=== PATIENT | female | born 1970 | race Caucasian/White ===

== ENCOUNTER 2018-08-16 16:26 | Outpatient (CLI) | payer BC, SELFPAY ==
[2018-08-16 18:24] LABS: Hemoglobin A1C 7.2 % (4.5-6.2)
[2018-08-16 19:07] LABS: TSH (W/Ref FT4) 4.75 uIU/mL (0.358-3.74)
[2018-08-16 19:31] LABS: FREE T4 0.76 ng/dL (0.76-1.46)
== END 2018-08-16 16:46 ==
PROVIDERS: PCP General Practice; Visit Provider General Practice
DX: E11.9 Type 2 diabetes mellitus without complications (principal); E03.9 Hypothyroidism, unspecified
CPT/HCPCS: 36415; 83036; 84439; 84443

== ENCOUNTER 2020-04-02 02:04 | Outpatient (CLI) | payer BC, SELFPAY ==
[2020-04-02 11:10] LABS: Hemoglobin A1C 8.4 % (3.8-5.6)
[2020-04-02 11:21] LABS: COMMENT (LAB VIEW ONLY) 50.74 mg/dL; Microalb ug/mg Crea 6.1 ug/mg Cr
[2020-04-02 12:02] LABS: Albumin 3.9 g/dL (3.4-5.0); Alkaline Phosphatase 49 U/L (46-116); Anion Gap 13.1 mmol/L (3-11); BUN 22 mg/dL (7-18); Bilirubin, Total 0.4 mg/dL (0.2-1.0); CO2 19.9 mmol/L (21.0-32.0); CREATININE 0.82 mg/dL (0.55-1.02); Calcium 8.3 mg/dL (8.5-10.1); Chloride 100 mmol/L (98-107); FREE T4 1.02 ng/dL (0.76-1.46); Glucose 207 mg/dL (74-106); Potassium 4.6 mmol/L (3.5-5.1); Sodium 133 mmol/L (136-145); Total Protein 7.8 g/dL (6.4-8.2)
[2020-04-02 12:13] LABS: ALT 25 U/L (14-59); AST 27 U/L (15-37)
== END 2020-04-02 02:24 ==
PROVIDERS: PCP General Practice; Visit Provider Physician Assistant
DX: E11.9 Type 2 diabetes mellitus without complications (principal); E78.5 Hyperlipidemia, unspecified; I10 Essential (primary) hypertension; E03.9 Hypothyroidism, unspecified
CPT/HCPCS: 36415; 80053; 82043; 82570; 83036; 84439; 84443

== ENCOUNTER 2020-11-06 10:41 | Outpatient (REF) | payer BC, SELFPAY ==
[2020-11-06 14:07] LABS: ALT 22 U/L (14-59); AST 12 U/L (15-37); Anion Gap 8.4 mmol/L (3-11); BUN 16 mg/dL (7-18); CO2 25.6 mmol/L (21.0-32.0); CREATININE 0.7 mg/dL (0.55-1.02); Calcium 9.1 mg/dL (8.5-10.1); Calculated LDL 151 mg/dL (<100); Chloride 102 mmol/L (98-107); Cholesterol 268 mg/dL (<200); Glucose 157 mg/dL (74-106); HDL Cholesterol 38 mg/dL (40-60); Potassium 4.6 mmol/L (3.5-5.1); Sodium 136 mmol/L (136-145); TSH (W/Ref FT4) 3.43 uIU/mL (0.36-3.74); Triglyceride 398 mg/dL (<150)
== END 2020-11-06 10:42 | disposition home or self-care (01) ==
LOC: NCHCN 10:41
PROVIDERS: PCP Nurse Practitioner Family; Visit Provider Nurse Practitioner Family
DX: E11.9 Type 2 diabetes mellitus without complications; E03.9 Hypothyroidism, unspecified; E78.5 Hyperlipidemia, unspecified
CPT/HCPCS: 80048; 80061; 84443; 84450; 84460

== ENCOUNTER 2021-02-05 09:59 | Outpatient (REF) | payer BC, SELFPAY ==
--- NOTE | 2021-02-05 08:30 | PAPFT_PTH ---
PATIENT: Xiao Sigala LOC: [facility] U#:[id number] AGE/SX: 50/F ROOM: RE02/05/[address]: Aletha Hernandez : 1970 BED: DIS: 02/05/2021 SPEC #: [id number] RECD: 02/05/21 13:06 STATUS: JUSTIN ADAN #: [id number] BRIA: 02/05/21 08:[address]: Aletha Hernandez DEPT: [facility] Cytology RECD BY: Maxine Rice Tissues: 1 - CX/ENDOCX FOR PAP SMEARS Procedures: PAP THIN PREP/UVM Screening HPV DNA PROBE Comments: [id number] (CHLAMYDIA/GC)
[2021-02-06 14:59] LABS: Chlamydia Result Negative (Negative); GC Result Negative (Negative)
== END 2021-02-05 10:00 | disposition home or self-care (01) ==
LOC: LBN 09:59
PROVIDERS: PCP Nurse Practitioner Family; Visit Provider Nurse Practitioner Family
DX: Z00.00 Encounter for general adult medical examination without abnormal findings (principal); Z12.4 Encounter for screening for malignant neoplasm of cervix; Z01.419 Encounter for gynecological examination (general) (routine) without abnormal findings; Z11.3 Encounter for screening for infections with a predominantly sexual mode of transmission; Z11.51 Encounter for screening for human papillomavirus (HPV)
CPT/HCPCS: 87491; 87591; 88142; 87624

== ENCOUNTER 2021-04-08 06:04 | Day surgery (SDC) | payer BC, SELFPAY ==
[2021-04-08 06:23] VITALS: BP 139/95; PULSE 90; RESP 20; TEMP 36.7; O2SAT 98
--- NOTE | 2021-04-08 06:25 | COLE_ITS ---
Date of service: 04/08/21 Time of Service: : Colonoscopy Report Date of procedure: 04/08/21 Pre-op diagnosis general: Colon Cancer Screening Post-op diagnosis procedure note: other (polyps and internal hemorrhoid) Procedure: Colonoscopy with polypectomy Surgeon: Sandie Hicks Anesthesia Type: General:No Airway (ASA 3/ Batool Mckinnon CRNA) Estimated blood loss (mL): 3 Pathology: other (Transverse polyp, rectal polyp) Complications: None Disposition: same day Indications: The patient is here for Colonoscopy pre-op. She has no family history of colon cancer. She has not had any bowel habit changes. -Discussed colonoscopy bowel prep as well as the procedure. Discussed possible complications of the procedure to include bleeding, pain, perforation, missed small lesion/polyp, sore throat, aspiration and adverse reaction to the medications. Questions were answered to patient?s satisfaction. No guarantees were implied or given. Prep: Miralax/Dulcolax Procedure Start Time: Procedure End Time: 08:00 Retraction Time: 20 minutes Findings: 3 small sessile polyps Internal hemorrhoi/Skin tag Procedure Description: After informed consent was obtained the patient was taken to the procedure room and placed in a left decubitous position. Monitors were applied and a time out was done. The patients name, date of , procedure, allergies to medications and metal in their body was reviewed. The patient was then sedated. Once sedated and comfortable a rectal exam was done. External exam was normal. Internal exam revealed a normal sphincter tone and no palpable masses. The scope was then introduced and retro-flexed. One hemorrhoidal skin tag was noted on retroflexion. No polyps or masses were identified on retro-flexion. The scope was then advanced to the cecum without difficulty. The ileocecal vlave a nd appendiceal orifice were identified. The prep was good. The scope was then slowly retracted over 20 minutes back into the rectum. Polyps were removed with cold forceps in the transverse colon x1 and rectum x2. There was no diverticulosis noted. The scope was removed and the patient was woken up and taken back to Same day surgery in stable condition. The patient tolerated the procedure well and there were no immediate complications. Follow up: The patient should follow up in 5 years unless they develop changes in bowel habits or other new gastrointestinal complaints.
--- NOTE | 2021-04-08 06:25 | W.PM.DSUDISC ---
Discharge Plan Disposition Patient Disposition: HOME Condition: Good Discharge Details Reason For Visit: Colonoscopy Attending Provider: Sandie Hicks Primary Care Provider: Aletha Hernandez Home Meds and New Rx's Prescriptions: Continued insulin lispro [Humalog KwikPen Insulin] 100 unit/mL insulin pen 10 unit subcut HS RF: 0 metformin 1,000 MG tablet 1,000 mg PO DAILY RF: 0 lisinopril 10 MG tablet 10 mg PO DAILY RF: 0 bisoprolol fumarate 5 mg tablet 5 mg PO DAILY RF: 0 glipizide 10 mg tablet 10 mg PO DAILY RF: 0 Jardiance 10 mg tablet 20 mg PO DAILY RF: 0 hydrochlorothiazide 12.5 mg tablet 12.5 mg PO DAILY RF: 0 atorvastatin 40 mg tablet 40 mg PO HS RF: 0 Discharge Instructions Instructions: Colorectal Polyps (DC), Hemorrhoids (DC) Additional Instructions: Findings: One hemorrhoidal skin tag polyps Follow up: 5 years Please call if you develop: fevers >101.5 Nausea or Vomiting Abdominal pain that is not transient Rectal bleeding that is more then a tbsp A hard abdomen and inability to pass gas DAY SURGERY UNIT POST ENDOSCOPY INSTRUCTIONS Instructions for everyone who is given Anesthesia: For your safety, please do the following for the next 24 Hours: a. Do not drive or operate dangerous equipment b. Do not drink alcohol beverages or use any recreational drugs for the first 24 hours or while taking pain medications. The medications in your body may have a reaction that can be dangerous. c. Do not make any important decisions or sign any important papers 1. Generally there are no restrictions on your activity after a day or so has gone by, but you may feel a bit fatigued for a few days. 2. After you arrive home you may have a light meal and return to a normal diet as you can tolerate it without feeling sick to your stomach. 3. After surgery, you may feel pain or discomfort. This should be only transient, but if it persists please contact your doctor. 4. If there are any questions regarding the findings of your procedure, please feel free to contact your doctor. 6. If you are unable to contact your doctor with a problem, contact the hospital at [phone]. 7. Continue all your regular medications unless directed otherwise. I understand the above instructions and have no questions. Signature of Patient or Responsible Adult Escort Date/Time Name of Responsible Adult Escort Signature of Nurse Date/Time Activity:: Activity as Tolerated Diet:: As Tolerated Discharge Orders Discharge Orders: Discharge Order (Routine); Ordered 04/08/21 Ordered By: Sandie Hicks
[2021-04-08] MEDS: Lactated Ringers 1,000 ML 80 ML IV (06:41)
--- NOTE | 2021-04-08 07:02 | W.ANESPRE ---
General Info Date of Service Date Performed: 04/08/21 Height: 5 ft 3 in Weight: 92.3 kg Body Mass Index (BMI): 36.0 Surgical Procedure: Operation Date: 04/08/21 07:35 Proposed Procedures Side Surgeon p Colonoscopy Sandie Hicks MD Meds Allergies and Home Medications Allergies Allergy/AdvReac Type Severity Reaction Status Date / Time No Known Allergies Allergy Unverified 04/05/21 09:54 Home Medication Medication Instructions Recorded lisinopril 10 mg PO DAILY tab-cap 10/01/15 metformin 1,000 mg PO DAILY 10/01/15 bisoprolol fumarate 5 mg tablet 5 mg PO DAILY 11/30/20 empagliflozin 10 mg tablet 20 mg PO DAILY tab 11/30/20 glipizide 10 mg tablet 10 mg PO DAILY 11/30/20 hydrochlorothiazide 12.5 mg tablet 12.5 mg PO DAILY 11/30/20 insulin lispro 100 unit/mL 10 unit SUBCUT HS 03/21/21 subcutaneous pen atorvastatin 40 mg PO HS 04/05/21 Current Visit Medications: Current Medications Generic Name Dose Route Start Last Admin Trade Name Freq PRN Reason Stop Dose Admin Hyoscyamine Sulfate 0.125 mg 04/08/21 06:26 Hyoscyamine 0.125 Mg Sl/Oral/Chew SL DIRECTED PRN Ringer's Solution 1,000 mls @ 80 mls/hr 04/08/21 06:00 IV 04/08/21 23:59 INFUSION BETHANY IV Miscellaneous Supplies 1 each 04/08/21 06:00 Iv Access IV 04/08/21 23:59 DIRECTED BETHANY Ondansetron HCl 4 mg 04/08/21 06:26 Ondansetron 4 Mg/2 Ml Vial IVP Q4H PRN PRN Nausea / Vomiting Sodium Chloride 0 ml 04/08/21 06:00 Normal Saline Flush 10 Ml Syr IV 04/08/21 23:59 PRN PRN Sodium Chloride 0 ml 04/08/21 06:00 Normal Saline 10 Ml Vial IJ 04/08/21 23:59 DIRECTED PRN Sterile Water 0 ml 04/08/21 06:00 Water,Injection,Sterile 10 Ml Vial IJ 04/08/21 23:59 DIRECTED PRN PFSH Active Problems Active Problems: Problem Status Onset Code Screening for colon cancer Z12.11 Medical History Medical History Hyperlipidemia Hypertension Hypothyroid pt. denies this Type 2 diabetes mellitus Surgical History Surgical History Ligation of fallopian tube Tobacco Smoking/Tobacco Use Status: Never Alcohol Alcohol Intake: never Substance Use Substance use: Never Substance use type: does not use Vital Signs and Lab Results Vital Signs Most Recent Vital Signs in EMR: Most Recent Vital Signs Temp Pulse Resp BP Pulse Ox 36.7 C 90 20 139/95 H 98 04/08/21 06:23 04/08/21 06:23 04/08/21 06:23 04/08/21 06:23 04/08/21 06:23 Point of Care Results Point of Care Results: Finger Stick Blood Glucose 135 04/08/21 06:40 Lab Results Blood Type / Crossmatch: No Data to Display Complete Blood Count: No Data to Display Complete Metabolic Panel: No Data to Display Liver Function Panel: No Data to Display Coagulation Panel: No Data to Display Cardiac Panel: No Data to Display Arterial Blood Gas: No Data to Display Venous Blood Gas: No Data to Display Pancreas Panel: No Data to Display Thyroid Panel: No Data to Display Infectious Disease: No Data to Display Blood Cultures: No Data to Display Toxicology Panel: No Data to Display Panel: No Data to Display Anesthesia Assessment and Plan Anesthesia History Personal History: No History of Anesthesia Complications Family History: No Family History of Anesthesia Complications Exercise Tolerance Exercise Tolerance: Metabolic Equivalents>4 Pertinent Negatives Pertinent Negatives: No Symptoms of GERD, No Major Cardiovascular Symptoms or Complaints, No Major Pulmonary Symptoms or Complaints and No History of CVA/TIA Cardiac & Pulmonary Exam Cardiac Exam: Normal S1/S2 Heart Sounds Pulmonary Exam: Clear Bilateral Breath Sounds Airway Exam Known Difficult Airway: No Mallampati Class: 2 Mouth Opening: Normal (> 3cm) Thyromental Distance: Greater than 3 cm Neck Range of Motion: Full ROM Neck Circumference: Normal Teeth Condition: Normal Dentition ASA Classification ASA Score: ASA 3 Emergency Case?: No NPO Status NPO Status: NPO Clears >2 hours, Solids >8 hours Status Status: Negative HCG Anesthesia Plan Resuscitation Status: Full Code Anesthesia Technique: General Anesthesia Airway Planned: Natural Airway Monitors Used: Standard Monitors
[2021-04-08 07:06] VITALS: BMI 36.0
[2021-04-08 08:08] VITALS: BP 113/66; PULSE 69; RESP 16; TEMP 36.2; O2SAT 96
--- NOTE | 2021-04-08 08:13 | W.ANESPOSTOP ---
Postoperative Evaluation Date, Time and Location Date Performed: 04/08/21 Time Performed: 08:13 Patient Location: Day Surgery Unit Vital Signs Most Recent Imported Vital Signs: Most Recent Vital Signs Temp Pulse Resp BP Pulse Ox 36.2 C L 69 16 113/66 96 04/08/21 08:08 04/08/21 08:08 04/08/21 08:08 04/08/21 08:08 04/08/21 08:08 Pain Score Most Recent Pain Score: Most Recent Pain Score Pain Level 0 04/08/21 08:08 Assessment Mental Status: Awake (Alert & Oriented to Patient Baseline) Airway and Respiratory Function: Patent airway with normal (patient baseline) respiratory exam Cardiovascular Function: Hemodynamically Stable Hydration Status: Adequately Hydrated Nausea & Vomiting: No Nausea or Vomiting Pain: Pt. Denies Any Pain Peripheral Nerve Block: Patient did not receive a nerve block
[2021-04-08 08:37] VITALS: BP 131/77; PULSE 73; RESP 20; TEMP 36.5; O2SAT 99
--- NOTE | 2021-04-08 08:40 | BOWEL_PTH ---
PATIENT: Xiao Sigala LOC: [facility] U#:[id number] AGE/SX: 50/F ROOM: RE04/08/[address]: Sandie Hicks MD : 1970 BED: DIS: 04/08/2021 SPEC #: [id number] RECD: 04/08/21 12:14 STATUS: JUSITN REQ #: [id number] BRIA: 04/08/21 08:[address]: Sandie Hicks DEPT: Surgical Specimen RECD BY: Maxine Rice ENTERED: 04/08/21 12:16 SP TYPE: Bowel OTHR DR: Aletha Hernandez Tissues: 1 - BIOPSY BOWEL 2 - BIOPSY BOWEL Procedures: GROSS AND MICRO LEVEL 4 Comments: [id number]
== END 2021-04-08 09:34 | disposition home or self-care (01) ==
PROVIDERS: PCP Nurse Practitioner Family; Visit Provider Surgery
PROC: 0DJD8ZZ Inspection of Lower Intestinal Tract, Via Natural or Artificial Opening Endoscopic (ICD-10-PCS; CPT 45378; principal; 2021-04-08 07:30)
DX: Z12.11 Encounter for screening for malignant neoplasm of colon (principal); E11.9 Type 2 diabetes mellitus without complications; I10 Essential (primary) hypertension; D12.3 Benign neoplasm of transverse colon; D12.8 Benign neoplasm of rectum; K64.8 Other hemorrhoids
CPT/HCPCS: 45380; 81025; 88305; 99211; J2001

== ENCOUNTER 2021-04-29 01:02 | Outpatient (CLI) | payer BC, SELFPAY ==
--- NOTE | 2021-04-29 | DI.MAMMO_ITS ---
Exam(s) MAMMO SCREENING EXAM: MAMMO SCREENING CLINICAL HISTORY: SCREENING,Z12.31. TECHNIQUE: Bilateral full field digital CC and MLO mammographic images were obtained with 3D tomosyn thesis and utilizing computer aided detection (CAD). COMPARISON: None. This is a baseline mammogram on this 50-year-old patient. FINDINGS: There are no CAD designations. There are no significant radiograph findings in the right breast. Anteriorly in the left breast there is an asymmetric density measuring 5 x 4 millimeters, located 3 c m in from the nipple, slightly lateral of center. Somewhat equivocal on 3D imaging. There are no malignant-appearing microcalcification groups in this region or elsewhere in either [address] There is no significant architectural distortion nor skin thickening-retraction. IMPRESSION: 1. No radiographic evidence of malignancy in the right breast. 2. Possible 5 x 4 millimeter nodule anteriorly in the left breast as described above. Spot compressi on view and ultrasound recommended BI-RADS Category 0 - Assessment Incomplete: Need additional imaging evaluation Breast Density - Category B - Scattered areas of fibroglandular density Breast density Category C or D implies that the patient has dense breast tissue. Dense breast tissue can make it harder to find cancer on a mammogram. Dense breast tissue is also associated with an incr eased risk of breast cancer. This information about the result of the mammogram report was provided to the patient to raise their awareness. Use this report when you speak with the patient about their risks for breast cancer, which includes their family history. At that time, you may recommend additional screening tests (Ultrasoun d or MRI) as these tests may add significant information. A negative radiographic report should not delay biopsy if a dominant or clinically suspicious mass is present. Up to ten percent of cancers are not identified on mammography. A negative report may reinforce clinical impression. Adenosis and dense breasts may obscure an underlying neoplasm. False positive reports average 6 to 10%. Patient will receive a letter notifying them of these results.
== END 2021-04-29 01:22 ==
PROVIDERS: PCP Nurse Practitioner Family; Visit Provider Nurse Practitioner Family
DX: Z12.31 Encounter for screening mammogram for malignant neoplasm of breast (principal); R92.8 Other abnormal and inconclusive findings on diagnostic imaging of breast
CPT/HCPCS: 77063; 77067

== ENCOUNTER 2021-05-09 03:06 | Outpatient (CLI) | payer BC, SELFPAY ==
--- NOTE | 2021-05-09 | DI.MAMMO_ITS ---
Exam(s) MG MAMMO SCREEN CALL BACK UNI US BREAST LT LIMITED EXAM: MG MAMMO SCREEN CALL BACK UNI and U/S breast LT limited CLINICAL HISTORY: F/U MAMMO, LT BREAST ASYMMETRIC DENSITY, ? NODULE. TECHNIQUE: Craniocaudal and mediolateral oblique Full Field Digital Mammography views of the left br east with Computer Aided Diagnosis followed by Tomosynthesis and left breast ultrasound. COMPARISON: Comparison with prior examinations. FINDINGS: Mammography/Tomosynthesis: Masses/Architectural Distortion: None seen. The area of concern does not persist on additional views. Microcalcifictions: No suspicious pleomorphic-type are seen. Skin Thickening/Nipple Retraction: None. Left breast US: Echotexture: Normal appearance of the glandular tissue. Shadowing: No suspicious foci. Cyst: None. Solid lesions: None seen. Ductal dilation: None. IMPRESSION: 1. No evidence of malignancy is noted. 2. Unless there is more urgent need, follow-up screening mammography is recommended, as per [employer] guidelines. 3. The findings were discussed with the patient on the date of the examination. BI-RADS Category 1 - Negative Breast Density - Category B - Scattered areas of fibroglandular density Breast density Category C or D implies that the patient has dense breast tissue. Dense breast tissue can make it harder to find cancer on a mammogram. Dense breast tissue is also associated with an incr eased risk of breast cancer. This information about the result of the mammogram report was provided to the patient to raise their awareness. Use this report when you speak with the patient about their risks for breast cancer, which includes their family history. At that time, you may recommend additional screening tests (Ultrasoun d or MRI) as these tests may add significant information. A negative radiographic report should not delay biopsy if a dominant or clinically suspicious mass is present. Up to ten percent of cancers are not identified on mammography. A negative report may reinforce clinical impression. Adenosis and dense breasts may obscure an underlying neoplasm. False positive reports average 6 to 10%. Patient will receive a letter notifying them of these results.
== END 2021-05-09 03:26 ==
PROVIDERS: PCP Nurse Practitioner Family; Visit Provider Nurse Practitioner Family
DX: Z12.31 Encounter for screening mammogram for malignant neoplasm of breast (principal); R92.8 Other abnormal and inconclusive findings on diagnostic imaging of breast; N64.89 Other specified disorders of breast
CPT/HCPCS: 76642; 77063; 77067

== ENCOUNTER 2022-04-04 16:13 | Outpatient (REF) | payer BC, SELFPAY ==
[2022-04-04 15:21] LABS: HCT 38.5 % (36.0-46.0); HGB 12.3 g/dL (11.2-15.7); MCH 29.6 pg (27.0-33.0); MCHC 31.9 % (32.0-36.0); MCV 93 fL (80-95); MPV 10.4 fL (8.0-11.0); Platelet Count 371 10^3/uL (130-400); RBC 4.15 10^6/uL (3.93-5.22); RDW 13.4 % (11.7-14.6); RDW-SD 45.3 fL; WBC 7.19 10^3/uL (4.4-10.8)
[2022-04-04 15:38] LABS: ALT 26 U/L (14-59); AST 16 U/L (15-37); Albumin 4.1 g/dL (3.4-5.0); Alkaline Phosphatase 40 U/L (46-116); Anion Gap 11.3 mmol/L (3-11); BUN 21 mg/dL (7-18); Bilirubin, Total 0.3 mg/dL (0.2-1.0); CO2 25.7 mmol/L (21.0-32.0); CREATININE 0.7 mg/dL (0.55-1.02); Calcium 8.8 mg/dL (8.5-10.1); Calculated LDL 83 mg/dL (<100); Chloride 100 mmol/L (98-107); Cholesterol 172 mg/dL (<200); Glucose 71 mg/dL (74-106); HDL Cholesterol 45 mg/dL (40-60); Potassium 4.3 mmol/L (3.5-5.1); Sodium 137 mmol/L (136-145); TSH (W/Ref FT4) 3.29 uIU/mL (0.36-3.74); Total Protein 7.7 g/dL (6.4-8.2); Triglyceride 220 mg/dL (<150)
== END 2022-04-04 16:14 | disposition home or self-care (01) ==
LOC: LBN 16:13
PROVIDERS: PCP Nurse Practitioner Family; Visit Provider Nurse Practitioner Family
DX: Z00.00 Encounter for general adult medical examination without abnormal findings (principal); E03.9 Hypothyroidism, unspecified; E78.5 Hyperlipidemia, unspecified
CPT/HCPCS: 80053; 80061; 85027; 84443

== ENCOUNTER 2022-12-29 01:52 | Outpatient (CLI) | payer BC, SELFPAY ==
--- NOTE | 2022-12-29 | DI.MAMMO_ITS ---
Exam(s) MAMMO SCREENING EXAM: MAMMO SCREENING CLINICAL HISTORY: SCREENING, Z12.31. TECHNIQUE: Bilateral full field digital CC and MLO mammographic images were obtained with 3D tomosyn thesis and utilizing computer aided detection (CAD). COMPARISON: Prior mammograms were reviewed. FINDINGS: There has been no significant change in the appearance and distribution of the fibroglandular tissue. There are no CAD designations. No new significant findings in the right breast. Nodular density in the left breast measuring approximately 5 x 3 cm and located approximately 3 cm fr om the nipple slightly lateral of center is noted and appears to have slightly increased in size when compared to April 2021. Requires further imaging. There is no significant architectural distortion nor skin thickening-retraction. IMPRESSION: No radiographic evidence of malignancy in the right breast. Left breast nodular density located 3 cm in from the nipple appears slightly larger than previous. S pot compression view and ultrasound recommended. BI-RADS Category 0 - Assessment Incomplete: Need additional imaging evaluation Breast Density - Category B - Scattered areas of fibroglandular density Breast density Category C or D implies that the patient has dense breast tissue. Dense breast tissue can make it harder to find cancer on a mammogram. Dense breast tissue is also associated with an incr eased risk of breast cancer. This information about the result of the mammogram report was provided to the patient to raise their awareness. Use this report when you speak with the patient about their risks for breast cancer, which includes their family history. At that time, you may recommend additional screening tests (Ultrasoun d or MRI) as these tests may add significant information. A negative radiographic report should not delay biopsy if a dominant or clinically suspicious mass is present. Up to ten percent of cancers are not identified on mammography. A negative report may reinforce clinical impression. Adenosis and dense breasts may obscure an underlying neoplasm. False positive reports average 6 to 10%. Patient will receive a letter notifying them of these results.
== END 2022-12-29 02:12 ==
LOC: DI 01:53
PROVIDERS: PCP Nurse Practitioner Family; Visit Provider Nurse Practitioner Family
DX: Z12.31 Encounter for screening mammogram for malignant neoplasm of breast (principal); R92.8 Other abnormal and inconclusive findings on diagnostic imaging of breast
CPT/HCPCS: 77063; 77067

== ENCOUNTER 2023-01-01 02:20 | Outpatient (CLI) | payer BC, SELFPAY ==
--- NOTE | 2023-01-01 | DI.US_ITS ---
Exam(s) MG MAMMO SCREEN CALL BACK UNI US BREAST LT COMPLETE EXAM: MAMMO SCREEN CALL BACK UNI CLINICAL HISTORY: F/U MAMMO, LT BREAST NODULAR DENSITY. TECHNIQUE: Unilateral spot mammographic images obtained with 3D tomosynthesisand utilizing computer aided detection (CAD). . Complete left breast Ultrasound was also performed, including all 4 quadrants, the retroareolar regio n, and the ipsilateral axilla. COMPARISON: Prior mammograms were reviewed. This additional imaging was performed due to findings described on the recent screening mammogram of . FINDINGS: DIAGNOSTIC MAMMOGRAM: Additional mammographic views performed todaydoes not dissipate the nodule. Therefore proceeded with ultrasound. COMPLETE LEFT BREAST ULTRASOUND: Ultrasound performed today reveals a 4 millimeter benign microcyst at the 2 o'clock position, this co rresponding to the finding on the mammogram.. No solid findings on ultrasound in all 4 quadrants. Scanning of the ipsilateral axilla reveals no significant adenopathy. IMPRESSION: 1. There is a benign 4 mm microcyst at 2 o'clock position left breast seen on ultrasound and corresp onding to the finding on the mammogram. Appropriate follow-up as discussed by myself with the patient today, is to keep this patient on her y early mammogram schedule, with earlier imaging if a self detected breast changes noted.. The patient was informed of these findings and recommendations prior to leaving the department today. BI-RADS Category 2 - Benign Findings Breast Density - Category B - Scattered areas of fibroglandular density Breast density Category C or D implies that the patient has dense breast tissue. Dense breast tissue can make it harder to find cancer on a mammogram. Dense breast tissue is also associated with an incr eased risk of breast cancer. This information about the result of the mammogram report was provided to the patient to raise their awareness. Use this report when you speak with the patient about their risks for breast cancer, which includes their family history. At that time, you may recommend additional screening tests (Ultrasoun d or MRI) as these tests may add significant information. A negative radiographic report should not delay biopsy if a dominant or clinically suspicious mass is present. Up to ten percent of cancers are not identified on mammography. A negative report may reinforce clinical impression. Adenosis and dense breasts may obscure an underlying neoplasm. False positive reports average 6 to 10%. Patient will receive a letter notifying them of these results.
== END 2023-01-01 02:40 ==
LOC: DI 02:21
PROVIDERS: PCP Nurse Practitioner Family; Visit Provider Nurse Practitioner Family
DX: Z12.31 Encounter for screening mammogram for malignant neoplasm of breast (principal); R92.8 Other abnormal and inconclusive findings on diagnostic imaging of breast; N60.02 Solitary cyst of left breast
CPT/HCPCS: 76642; 77063; 77067

== ENCOUNTER 2023-06-24 16:04 | Outpatient (REF) | payer BC, SELFPAY ==
[2023-06-24 17:46] LABS: HCT 38.4 % (36.0-46.0); HGB 12.1 g/dL (11.2-15.7); MCH 27.4 pg (27.0-33.0); MCHC 31.5 % (32.0-36.0); MCV 87 fL (80-95); MPV 10.7 fL (8.0-11.0); Platelet Count 385 10^3/uL (130-400); RBC 4.41 10^6/uL (3.93-5.22); RDW 14.7 % (11.7-14.6); RDW-SD 47.4 fL; WBC 5.49 10^3/uL (4.4-10.8)
[2023-06-24 18:11] LABS: ALT 22 U/L (14-59); AST 15 U/L (15-37); Albumin 4.1 g/dL (3.4-5.0); Alkaline Phosphatase 42 U/L (46-116); Anion Gap 9.9 mmol/L (3-11); BUN 16 mg/dL (7-18); Bilirubin, Total 0.3 mg/dL (0.2-1.0); CO2 25.1 mmol/L (21.0-32.0); CREATININE 0.9 mg/dL (0.55-1.02); Calcium 9.4 mg/dL (8.5-10.1); Calculated LDL 60 mg/dL (<100); Chloride 100 mmol/L (98-107); Cholesterol 130 mg/dL (<200); Estimated GFR 76.92 (mL/min/1.73m2); Glucose 118 mg/dL (74-106); HDL Cholesterol 46 mg/dL (40-60); Potassium 4.7 mmol/L (3.5-5.1); Sodium 135 mmol/L (136-145); TSH (W/Ref FT4) 6.36 uIU/mL (0.36-3.74); Total Protein 7.9 g/dL (6.4-8.2); Triglyceride 120 mg/dL (<150)
[2023-06-24 18:44] LABS: FREE T4 0.78 ng/dL (0.76-1.46)
== END 2023-06-24 16:05 | disposition home or self-care (01) ==
LOC: NCHCN 16:04
PROVIDERS: PCP Nurse Practitioner Family; Visit Provider Nurse Practitioner Family
DX: Z00.00 Encounter for general adult medical examination without abnormal findings (principal); E11.9 Type 2 diabetes mellitus without complications; E03.9 Hypothyroidism, unspecified; E78.5 Hyperlipidemia, unspecified
CPT/HCPCS: 80053; 80061; 85027; 84439; 84443

== ENCOUNTER 2024-02-23 16:31 | Outpatient (REF) | payer BC, SELFPAY ==
[2024-02-23 17:18] LABS: ALT 26 U/L (14-59); AST 16 U/L (15-37); Albumin 4.2 g/dL (3.4-5.0); Alkaline Phosphatase 42 U/L (46-116); BUN 20 mg/dL (7-18); Bilirubin, Total 0.3 mg/dL (0.2-1.0); CREATININE 0.9 mg/dL (0.55-1.02); Calcium 9.1 mg/dL (8.5-10.1); Chloride 104 mmol/L (98-107); Estimated GFR 76.44 (mL/min/1.73m2); Glucose 107 mg/dL (74-106); Potassium 4.7 mmol/L (3.5-5.1); Sodium 140 mmol/L (136-145); Total Protein 7.8 g/dL (6.4-8.2)
[2024-02-23 18:16] LABS: COMMENT (LAB VIEW ONLY) 56.44 mg/dL; Microalb ug/mg Crea 7.8 ug/mg Cr
== END 2024-02-23 16:32 | disposition home or self-care (01) ==
LOC: NCHCN 16:31
PROVIDERS: PCP Nurse Practitioner Family; Visit Provider Nurse Practitioner Family
DX: E11.9 Type 2 diabetes mellitus without complications (principal); I10 Essential (primary) hypertension
CPT/HCPCS: 80053; 82043; 82570

== ENCOUNTER 2024-05-09 02:25 | Outpatient (CLI) | payer BC, SELFPAY ==
--- NOTE | 2024-05-09 | DI.MAMMO_ITS ---
Exam(s) MAMMO SCREENING EXAM: MAMMO SCREENING CLINICAL HISTORY: SCREENING, Z12.39 TECHNIQUE: Bilateral full field digital CC and MLO mammographic images were obtained with 3D tomosyn thesis and utilizing computer aided detection (CAD). COMPARISON: Available for comparison. FINDINGS: Masses/Architectural Distortion: There is a new 5 mm well-circumscribed nodule in the outer left [address] st centrally. No areas of architectural distortion are seen. Microcalcifications: No suspicious pleomorphic-type are seen. Skin Thickening/Nipple Retraction: None. IMPRESSION: 1. New 5 mm left breast nodule. 2. Spot compression view and a left breast ultrasound are requested for further evaluation. BI-RADS Category 0 - Incomplete: Need additional imaging evaluation Breast Density - Category B - Scattered areas of fibroglandular density Breast density category C or D implies that the patient has dense breast tissue. Dense breast tissue is very common and is not abnormal but dense breast tissue can make it harder to find cancer on a ma mmogram. Also, dense breast tissue may increase their breast cancer risk. This information about the result of the mammogram report was provided to the patient to raise their awareness. Use this report when you speak with the patient about their risks for breast cancer, which includes their family hist ory. At that time, you may recommend for more screening tests (Ultrasound or MRI) as they might be us eful based on their risk. A negative radiographic report should not delay biopsy if a dominant or clinically suspicious mass is present. Up to ten percent of cancers are not identified on mammography. A negative report may reinforce clinical impression. Adenosis and dense breasts may obscure an underlying neoplasm. False positive reports average 6 to 10%. Patient will receive a letter notifying them of these results.
== END 2024-05-09 02:45 ==
LOC: DI 02:25
PROVIDERS: PCP Nurse Practitioner Family; Visit Provider Nurse Practitioner Family
DX: Z12.39 Encounter for other screening for malignant neoplasm of breast (principal); R92.8 Other abnormal and inconclusive findings on diagnostic imaging of breast; N63.25 Unspecified lump in the left breast, overlapping quadrants
CPT/HCPCS: 77063; 77067

== ENCOUNTER 2024-05-16 02:24 | Outpatient (CLI) | payer BC, SELFPAY ==
--- NOTE | 2024-05-16 | DI.MAMMO_ITS ---
Exam(s) MG MAMMO SCREEN CALL BACK UNI US BREAST LT LIMITED EXAM: MG MAMMO SCREEN CALL BACK UNI CLINICAL HISTORY: New 5 mm well-circumscribed breast nodule in outer lt breast centrally. TECHNIQUE: Craniocaudal and mediolateral oblique spot compression digital Mammography views of the l eftbreast with Tomosynthesis and left breast ultrasound. COMPARISON: MG MG MAMMO SCREENING from 04/29/2021 MG MG MAMMO SCREENING from 12/29/2022 MG MG MAMMO SCREEN CALL BACK UNI from 01/01/2023 US US BREAST LT COMPLETE from 01/01/2023 MG MG MAMMO SCREENING from 05/09/2024 US US BREAST LT LIMITED from 05/16/2024 FINDINGS: Mammography/Tomosynthesis: Masses: None seen. Persistent circumscribed nodule in the lateral central left breast. Architectural Distortion: None seen. Microcalcifictions: No suspicious pleomorphic-type are seen. Skin Thickening/Nipple Retraction: None. Left breast US: Echotexture: Normal appearance of the glandular tissue. Shadowing: No suspicious foci. Cyst: 5 x 4 x 4 millimeter cyst 2 o'clock position 2 cm from the nipple this is consistent with the m ammographic finding. Solid lesions: None seen. Ductal dilation: None. IMPRESSION: 1. No evidence of malignancy is noted. 2. Unless there is more urgent need, follow-up screening mammography is recommended, as per [employer] guidelines. 3. The findings were discussed with the patient on the date of the examination. BI-RADS Category 2 - Benign Findings Breast Density - Category B - Scattered areas of fibroglandular density A mammogram that demonstrates density of C or D indicates the patient's breast tissue is dense. Dense breast tissue is very common and is not abnormal, but dense breast tissue can make it harder to find cancer on a mammogram. Also, dense breast tissue may increase their breast cancer risk. This informa tion about the result of the mammogram report was provided to the patient to raise their awareness. U se this report when you speak with the patient about their risks for breast cancer, which includes th eir family history. At that time, you may recommend for more screening tests (Ultrasound or MRI) as t hey might be useful based on their risk. A negative radiographic report should not delay biopsy if a dominant or clinically suspicious mass is present. Up to ten percent of cancers are not identified on mammography. A negative report may reinforce clinical impression. Adenosis and dense breasts may obscure an underlying neoplasm. False positive reports average 6 to 10%. Patient will receive a letter notifying them of these results.
== END 2024-05-16 02:44 ==
LOC: DI 02:24
PROVIDERS: PCP Nurse Practitioner Family; Visit Provider Nurse Practitioner Family
DX: Z12.31 Encounter for screening mammogram for malignant neoplasm of breast (principal); R92.8 Other abnormal and inconclusive findings on diagnostic imaging of breast
CPT/HCPCS: 76642; 77063; 77067

== ENCOUNTER 2024-05-24 17:41 | Outpatient (REF) | payer BC, SELFPAY ==
[2024-05-24 21:15] LABS: HCT 38.6 % (36.0-46.0); HGB 11.8 g/dL (11.2-15.7); MCH 26.6 pg (27.0-33.0); MCHC 30.6 % (32.0-36.0); MCV 87 fL (80-95); MPV 10.5 fL (8.0-11.0); Platelet Count 359 10^3/uL (130-400); RBC 4.44 10^6/uL (3.93-5.22); RDW 17.1 % (11.7-14.6); RDW-SD 54.1 fL; WBC 6.27 10^3/uL (4.4-10.8)
[2024-05-24 21:35] LABS: TSH (W/Ref FT4) 6.77 uIU/mL (0.36-3.74)
[2024-05-24 21:54] LABS: FREE T4 0.85 ng/dL (0.76-1.46)
== END 2024-05-24 17:42 | disposition home or self-care (01) ==
LOC: NCHCN 17:41
PROVIDERS: PCP Nurse Practitioner Family; Visit Provider Nurse Practitioner Family
DX: N95.1 Menopausal and female climacteric states (principal)
CPT/HCPCS: 85027; 84439; 84443

== ENCOUNTER 2024-08-15 06:08 | Day surgery (SDC) | payer BC, SELFPAY ==
--- NOTE | 2024-08-14 15:41 | W.PREOPHP ---
Assessment and Plan Assessment and plan (1) Encounter for screening colonoscopy: Status: Acute Assessment and plan: I reviwed the plan for a screening colonsocopy today and the risks and the benefits of the procedure. I think Xiao has a good understanding of this and she is able to provide informed consent and we can proceed as planned. History of Present Illness History of Present Illness Chief Complaint: screening colonoscopy Narrative: 53 y/o female with history of HLD, hypothyroid, Type 2 DM and HTN presents for colonoscopy screening pre-op. Her last screening was in 2020 and was remarkable for tubular adenoma and sessile serrated adenoma. She denies a family history of colon cancer. She denies any changes in bowel habits including bloody or black tarry stools, abdominal pain, diarrhea or constipation. She denies constitutional symptoms. Denies use of marijuana or any other recreational or illegal drugs. She denies chest pain, palpitations, dyspnea or dyspnea with exertion. She denies prior history or family history of adverse reactions or complications with anesthesia. The patient denies any history of stroke, CO, seizures, bleeding or clotting disorders. She denies having any implanted metal in her body. Since her last office encounter, she was started on levothyroxine, and most recent thyroid study test been reassuring. Otherwise, there have been no major interval changes with regards to the history or physical. PFSH All Active Problems Encounter for screening colonoscopy (Acute) Serrated adenoma of colon (Acute ~03/2021) Tubular adenoma (Acute ~03/2021) Screening for colon cancer (Acute) Medical History Hypertension Hypothyroid pt. denies this Hyperlipidemia Type 2 diabetes mellitus Surgical History History of colonoscopy (~03/2021) Ligation of fallopian tube Family History Mother Essential hypertension Father Essential hypertension Social History Smoking/Tobacco Use Status: Never Smoking risk assessment performed?: Yes Alcohol Intake: never Drug use: Never Substance use type: does not use Housing: house Do you feel safe at home: Yes Do you feel safe in your relationship?: Yes Meds Allergies and Home Medications Allergies Allergy/AdvReac Type Severity Reaction Status Date / Time No Known Allergies Allergy Verified 08/15/24 06:28 Home Medications ?Medication ?Instructions ?Recorded ?Confirmed ?Type lisinopril 10 mg tablet 10 mg PO DAILY 10/01/15 08/15/24 History bisoprolol fumarate 5 mg tablet 5 mg PO DAILY 11/30/20 08/15/24 History empagliflozin 10 mg tablet 20 mg PO DAILY 11/30/20 08/15/24 History (Jardiance) hydrochlorothiazide 12.5 mg tablet 12.5 mg PO DAILY 11/30/20 08/15/24 History atorvastatin 40 mg tablet 40 mg PO HS 04/05/21 08/15/24 History atenolol 50 mg tablet 50 mg PO DAILY 04/26/24 08/15/24 History dulaglutide 1.5 mg/0.5 mL 1.5 mg subcut QWEEK 04/26/24 08/11/24 History subcutaneous pen injector (Trulicity) glipizide 10 mg tablet 5 mg PO BID 04/26/24 08/15/24 History insulin lispro 100 unit/mL 25 unit subcut HS 04/26/24 08/15/24 History subcutaneous pen (Humalog KwikPen (U-100) Insulin) metformin 1,000 mg tablet 500 mg PO BID 04/26/24 08/15/24 History levothyroxine 75 mcg capsule 75 mcg PO DAILY 06/13/24 08/15/24 History Exam Const General: cooperative, healthy appearing and not in acute distress Neck Neck: normal visual inspection, no lymphadenopathy and supple Resp Effort & Inspection: normal respiratory effort Auscultation: clear to auscultation bilaterally Cardio Jugular venous pressure: no JVD Rate: regular rate Rhythm: regular rhythm Heart Sounds: S1 normal and S2 normal Neuro General: patient alert, patient awake and patient oriented x3 Psych Appearance: grossly normal
--- NOTE | 2024-08-14 15:44 | COLE_ITS ---
Date of service: 08/15/24 Time of Service: 08:09 Colonoscopy Report Date of procedure: 08/15/24 Pre-op diagnosis general: screening colonoscopy Post-op diagnosis procedure note: other (Negative screening colonoscopy) Procedure: colonoscopy Surgeon: Gerhard Leblanc Anesthesia Type: General:No Airway Estimated blood loss (mL): 0 Pathology: none sent Complications: None Disposition: same day Indications: Xiao is a 53 year old woman who needs a screening colonscopy Prep: Miralax/Dulcolax Procedure Start Time: 07:37 Procedure End Time: 07:58 Retraction Time: 12 Findings: Negative screening colonoscopy Procedure Description: After the induction of anesthesia, and with the patient in left lateral decubitus position, I began by performing an external anorectal exam.? Perineum and skin were normal, as was the anal verge.? There are some external hemorrhoids..? Next, I performed a digital rectal exam.?? Next, I advanced a colonoscope into the rectal vault.? I performed retroflexion.? There is a benign fibroepithelial polyp at the top portion of the anal column.? Using insufflation, I then advanced the colonoscope beyond the rectal folds and into the sigmoid colon before advancing towards the cecum.? The quality of the prep was excellent.? The scope was noted to be in the cecum by identification of the ileocecal valve and appendiceal orifice.? I then began withdrawing the colonoscope using repeated irrigation as necessary for full evaluation of the colonic mucosa. ?Once the scope was withdrawn to the level of the rectum, great care was taken to examine portions of the rectal folds.? I did not see any signs of any concerning adenomatous type polyps finally, the scope was withdrawn and the patient was brought to the same-day surgery recovery unit as the anesthetic wore off. ?The findings and instructions were shared with the patient prior to discharge. [place] Bowel Prep [place] Bowel Prep Right Colon: 3 Left Colon: 3 Transverse Colon: 3 Total Score: 9
--- NOTE | 2024-08-14 15:45 | W.PM.DSUDISC ---
Date of service: 08/15/24 Time of Service: 08:11 Discharge Plan Disposition Patient Disposition: Home Condition: Good Discharge Details Reason For Visit: screening colonoscopy Attending Provider: Gerhard Leblanc Primary Care Provider: Aletha Hernandez Home Meds and New Rx's Prescriptions: Continued levothyroxine 75 mcg capsule 75 mcg PO DAILY lisinopril 10 MG tablet 10 mg PO DAILY bisoprolol fumarate 5 mg tablet 5 mg PO DAILY Jardiance 10 mg tablet 20 mg PO DAILY hydrochlorothiazide 12.5 mg tablet 12.5 mg PO DAILY metformin 1,000 mg tablet 500 mg PO BID glipizide 10 mg tablet 5 mg PO BID atenolol 50 mg tablet 50 mg PO DAILY insulin lispro [Humalog KwikPen Insulin] 100 unit/mL insulin pen 25 unit subcut HS Patient Comments: 15 units Trulicity 1.5 mg/0.5 mL pen injector 1.5 mg subcut QWEEK atorvastatin 40 mg tablet 40 mg PO HS Patient Comments: TAKE 1 TABLET BY MOUTH DAILY AT BEDTIME Discontinued bisacodyl [Dulcolax (bisacodyl)] 5 mg tablet,delayed release (DR/EC) 5 mg PO ONCE Qty: 4 0RF Rx Instructions: Take per colonoscopy instructions provided by ordering providers office polyethylene glycol 3350 17 gram/dose powder 17 g PO ONCE Qty: 238 0RF Rx Instructions: Take per colonoscopy instructions provided by ordering providers office Discharge Instructions Additional Instructions: Xiao, was very nice meeting you today, and I hope you are comfortable throughout the procedure. Your prep was excellent and I could see everything fine. You have some external hemorrhoids, to mild internal hemorrhoid disease. There is also a small fibroepithelial polyp at the bottom portion of your rectum. This is totally benign, and because of pain associated with the removal of these, I left this in place. With regards to the remainder of the colonoscopy, everything looks normal. I did not see any signs of any worrisome polyps anywhere along the length of your colon. Because of the type of polyp that had removed on your previous colonoscopy, I recommend another 5-year interval for your next screening. If that 1 is also negative, you could give stronger consideration to spacing them out. 1. If tolerated, consume a soft, low fiber diet for 1-2 days. 2[address] Do not drive, drink alcohol, operate machinery, make critical decisions, or do activities that require coordination or balance for 24 hours. 3. Because air was put into your colon during the procedure, expelling air from your rectum (passing gas or farting) is normal. 4. You may not have a bowel movement for 1-3 days because of the colonoscopy prep. This is normal. 5. Go directly to the emergency room if you notice any of the following: Develop chills (warm to touch), or if you have a thermometer and your temperature is above 101 Difficulty breathing or difficultly swallowing Persistent vomiting Severe abdominal pain, other than gas cramps Severe chest pain Black, tarry stools Any bleeding ? exceeding one tablespoon 6. Call your physician if the site where your intravenous was started becomes red, swollen, painful, and warm to touch. 7. Your physician has reviewed your pre-procedure medications. Please continue to take those medications as previously ordered. You will be given specific information/education regarding any changes to your medications before leaving. Stand Alone Forms: Anesthesia Discharge Inst., [place] ([facility]) Activity:: Activity as Tolerated Diet:: As Tolerated Discharge Orders Discharge Orders: Discharge Order (Routine); Ordered 08/14/24 Ordered By: Gerhard Leblanc DS: Diagnosis Discharge Diagnosis (1) Encounter for screening colonoscopy: Status: Acute Asessment and Plan: Negative screening colonoscopy; based on adenomatous polyps removed during the previous colonoscopy, recommend another 5-year interval
[2024-08-15 06:26] VITALS: BP 131/78; PULSE 89; RESP 16; TEMP 36.4; O2SAT 99
--- NOTE | 2024-08-15 06:57 | W.ANESPRE ---
General Info Date of Service Date Performed: 08/15/24 Height: 5 ft 4 in Weight: 92.8 kg Body Mass Index (BMI): 35.1 Surgical Procedure: Operation Date: 08/15/24 07:35 Proposed Procedure Side Surgeon p Colonoscopy Gerhard Leblanc MD Actual Procedure Side Surgeon p Colonoscopy Not Applicable Gerhard Leblanc MD Pre-Op Diagnosis Post-Op Diagnosis colonoscopy with hx of tubular adenoma and sessile serrated adenoma Meds Allergies and Home Medications Allergies Allergy/AdvReac Type Severity Reaction Status Date / Time No Known Allergies Allergy Verified 08/15/24 06:28 Home Medication ?Medication ?Instructions ?Recorded lisinopril 10 mg tablet 10 mg PO DAILY 10/01/15 bisoprolol fumarate 5 mg tablet 5 mg PO DAILY 11/30/20 empagliflozin 10 mg tablet 20 mg PO DAILY 11/30/20 (Jardiance) hydrochlorothiazide 12.5 mg tablet 12.5 mg PO DAILY 11/30/20 atorvastatin 40 mg tablet 40 mg PO HS 04/05/21 atenolol 50 mg tablet 50 mg PO DAILY 04/26/24 dulaglutide 1.5 mg/0.5 mL 1.5 mg subcut QWEEK 04/26/24 subcutaneous pen injector (Trulicity) glipizide 10 mg tablet 5 mg PO BID 04/26/24 insulin lispro 100 unit/mL 25 unit subcut HS 04/26/24 subcutaneous pen (Humalog KwikPen (U-100) Insulin) metformin 1,000 mg tablet 500 mg PO BID 04/26/24 levothyroxine 75 mcg capsule 75 mcg PO DAILY 06/13/24 Current Visit Medications: Current Medications Generic Name Dose Route Start Last Admin Trade Name Jeffq PRN Reason Stop Dose Admin Hyoscyamine Sulfate 0.125 mg 08/14/24 15:45 Hyoscyamine 0.125 Mg Sl/Oral/Chew SL 09/13/24 15:44 DIRECTED PRN Ringer's Solution 1,000 mls @ 80 mls/hr 08/15/24 06:00 IV 08/15/24 23:59 INFUSION BETHANY IV Miscellaneous Supplies 1 each 08/15/24 06:00 Iv Access IV 08/15/24 23:59 DIRECTED BETHANY Ondansetron HCl 4 mg 08/14/24 15:45 Ondansetron 4 Mg/2 Ml Vial IVP 09/13/24 15:44 Q4H PRN PRN Nausea / Vomiting Sodium Chloride 0 ml 08/15/24 06:00 Normal Saline Flush 10 Ml Syr IV 08/15/24 23:59 PRN PRN Sodium Chloride 0 ml 08/15/24 06:00 Normal Saline 10 Ml Vial IJ 08/15/24 23:59 DIRECTED PRN Sterile Water 0 ml 08/15/24 06:00 Water,Injection,Sterile 10 Ml Vial IJ 08/15/24 23:59 DIRECTED PRN PFSH Active Problems Active Problems: Problem Status Onset Code Encounter for screening colonoscopy Acute Z12.11 Serrated adenoma of colon Acute ~03/2021 D12.6 Tubular adenoma Acute ~03/2021 D36.9 Screening for colon cancer Acute Z12.11 Medical History Medical History Hypertension Hypothyroid pt. denies this Hyperlipidemia Type 2 diabetes mellitus Surgical History Surgical History History of colonoscopy (~03/2021) Ligation of fallopian tube Tobacco Smoking/Tobacco Use Status: Never Alcohol Alcohol Intake: never Substance Use Substance use: Never Substance use type: does not use Vital Signs and Lab Results Vital Signs Most Recent Vital Signs in EMR: Most Recent Vital Signs Temp Pulse Resp BP Pulse Ox 36.4 C L 89 16 131/78 99 08/15/24 06:26 08/15/24 06:26 08/15/24 06:26 08/15/24 06:26 08/15/24 06:26 Lab Results Blood Type / Crossmatch: No Data to Display Complete Blood Count: No Data to Display Complete Metabolic Panel: No Data to Display Liver Function Panel: No Data to Display Coagulation Panel: No Data to Display Cardiac Panel: No Data to Display Arterial Blood Gas: No Data to Display Venous Blood Gas: No Data to Display Pancreas Panel: No Data to Display Thyroid Panel: No Data to Display Infectious Disease: No Data to Display Blood Cultures: No Data to Display Toxicology Panel: No Data to Display Panel: No Data to Display Anesthesia Assessment and Plan Anesthesia History Personal History: No History of Anesthesia Complications Family History: No Family History of Anesthesia Complications Exercise Tolerance Exercise Tolerance: Metabolic Equivalents>4 Pertinent Negatives Pertinent Negatives: No Symptoms of GERD (rare) Cardiac & Pulmonary Exam Cardiac Exam: Normal S1/S2 Heart Sounds Pulmonary Exam: Clear Bilateral Breath Sounds Implantable Cardiac Device Does patient have a Pacemaker or an ICD?: No Airway Exam Known Difficult Airway: No Mallampati Class: 2 Mouth Opening: Normal (> 3cm) Thyromental Distance: Greater than 3 cm Neck Range of Motion: Full ROM Neck Circumference: Normal Teeth Condition: Normal Dentition ASA Classification ASA Score: ASA 2 Emergency Case?: No NPO Status NPO Status: NPO Clears >2 hours, Solids >8 hours Status Status: Negative HCG (urine) Anesthesia Plan Resuscitation Status: Full Code Anesthesia Technique: General Anesthesia Airway Planned: Natural Airway Monitors Used: Standard Monitors
[2024-08-15 06:58] VITALS: BMI 35.1
[2024-08-15 08:03] VITALS: BP 89/57; PULSE 72; RESP 17; TEMP 36.4; O2SAT 95
--- NOTE | 2024-08-15 08:12 | W.ANESPOSTOP ---
Postoperative Evaluation Date, Time and Location Date Performed: 08/15/24 Time Performed: 08:12 Patient Location: Day Surgery Unit Vital Signs Most Recent Imported Vital Signs: Most Recent Vital Signs Temp Pulse Resp BP Pulse Ox 36.4 C L 89 16 131/78 99 08/15/24 06:26 08/15/24 06:26 08/15/24 06:26 08/15/24 06:26 08/15/24 06:26 Pain Score Most Recent Pain Score: Most Recent Pain Score Pain Level 0 08/15/24 06:26 Assessment Mental Status: Awake (Alert & Oriented to Patient Baseline) Airway and Respiratory Function: Patent airway with normal (patient baseline) respiratory exam Cardiovascular Function: Hemodynamically Stable Hydration Status: Adequately Hydrated Nausea & Vomiting: No Nausea or Vomiting Pain: Pt. Denies Any Pain Peripheral Nerve Block: Patient did not receive a nerve block
[2024-08-15 08:31] VITALS: BP 107/72; PULSE 67; RESP 16; TEMP 36.3; O2SAT 99
== END 2024-08-15 08:42 | disposition home or self-care (01) ==
LOC: SUR 06:09
PROVIDERS: PCP Nurse Practitioner Family; Visit Provider Surgery
PROC: 0DJD8ZZ Inspection of Lower Intestinal Tract, Via Natural or Artificial Opening Endoscopic (ICD-10-PCS; CPT 45378; principal; 2024-08-15 07:30)
DX: Z12.11 Encounter for screening for malignant neoplasm of colon (principal); E11.9 Type 2 diabetes mellitus without complications; I10 Essential (primary) hypertension; K64.8 Other hemorrhoids
CPT/HCPCS: 45378; 81025; J2003; J2704

== ENCOUNTER 2024-08-30 11:51 | Outpatient (REF) | payer BC, SELFPAY ==
[2024-08-30 16:21] LABS: Ferritin 14 ng/mL (8-252); TSH (W/Ref FT4) 3.62 uIU/mL (0.36-3.74)
[2024-08-30 16:45] LABS: Iron 71 ug/dL (50-170); Total Iron Binding Capacity 369 ug/dL (250-450); Transferrin Sat 19 % (15-50)
== END 2024-08-30 11:52 | disposition home or self-care (01) ==
LOC: NCHCN 11:51
PROVIDERS: PCP Nurse Practitioner Family; Visit Provider Nurse Practitioner Family
DX: E03.9 Hypothyroidism, unspecified (principal); R71.8 Other abnormality of red blood cells
CPT/HCPCS: 82728; 83540; 83550; 84443

== ENCOUNTER 2024-12-05 15:46 | Outpatient (REF) | payer BC, SELFPAY ==
[2024-12-05 21:58] LABS: ALT 23 U/L (14-59); AST 15 U/L (15-37); Alkaline Phosphatase 45 U/L (46-116); Bilirubin, Direct 0.2 mg/dL (0.0-0.2); Bilirubin, Total 0.5 mg/dL (0.2-1.0); Total Protein 7.3 g/dL (6.4-8.2)
== END 2024-12-05 15:47 | disposition home or self-care (01) ==
LOC: NCHCN 15:46
PROVIDERS: PCP Nurse Practitioner Family; Visit Provider Family Medicine
DX: R07.89 Other chest pain (principal)
CPT/HCPCS: 80076

== ENCOUNTER 2024-12-06 11:23 | Outpatient (CLI) | payer BC, SELFPAY ==
--- NOTE | 2024-12-06 | DI.RAD_ITS ---
Exam(s) XR RIBS RT W PA LAT CHEST EXAM: XR RIBS RT W PA LAT CHEST CLINICAL HISTORY: CHEST WALL PAIN R07.89 RT SIDED RIB PAIN, SLIP ON ICE, FALL ONTO 5 GALLON TECHNIQUE: 2D digital imaging was performed. COMPARISON: No exams were available for comparison FINDINGS: Total 6 views: RIBS FOUR VIEWS-RIGHT: On 1 image there is a subtle cortical irregularity in the anterolateral aspect of what is probably th e right 8th rib. This may represent a subtle nondisplaced fracture. No rib lesions identified. CXR- 2 VIEWS: No lung contusion or pneumothorax. There is no pleural effusion evident. Heart size is normal and there is no significant mediastinal widening. IMPRESSION: 1. Possible subtle nondisplaced fracture of the anterolateral aspect of the right 8th rib. 2. No ipsilateral lung nor pleural abnormality evident. No pneumothorax. DATA REPOSITORY: RADIATION DOSE DELIVERED:
== END 2024-12-06 11:43 ==
LOC: DI 11:23
PROVIDERS: PCP Nurse Practitioner Family; Visit Provider Family Medicine
DX: R07.89 Other chest pain (principal)
CPT/HCPCS: 71046; 71100

== ENCOUNTER 2025-03-15 08:27 | Outpatient (REF) | payer BC, SELFPAY ==
[2025-03-15 15:28] LABS: Abs Immature Grans 0.01 10^3/uL (0.0-0.06); Absolute Basophil Count 0.04 10^3/uL (0.0-0.2); Absolute Lymphocyte Count 1.41 10^3/uL (1.2-3.4); Absolute Monocyte Count 0.41 10^3/uL (0.1-0.8); Absolute Neutrophil Count 3.44 10^3/uL (1.2-6.7); Basophils % 0.7 %; Eosinophils % 3.6 %; HCT 39.9 % (36.0-46.0); HGB 12.4 g/dL (11.2-15.7); Immature Grans % 0.2 %; Lymphocytes % 25.6 %; MCH 27.6 pg (27.0-33.0); MCHC 31.1 % (32.0-36.0); MCV 89 fL (80-95); MPV 10.6 fL (8.0-11.0); Monocytes % 7.4 %; Neutrophils % 62.5 %; Platelet Count 355 10^3/uL (130-400); RDW 14.2 % (11.7-14.6); WBC 5.51 10^3/uL (4.4-10.8)
[2025-03-15 16:55] LABS: ALT 27 U/L (14-59); AST 14 U/L (15-37); Albumin 4.1 g/dL (3.4-5.0); Alkaline Phosphatase 52 U/L (46-116); Anion Gap 11.2 mmol/L (3-11); BUN 21 mg/dL (7-18); Bilirubin, Total 0.4 mg/dL (0.2-1.0); CO2 25.8 mmol/L (21.0-32.0); CREATININE 0.8 mg/dL (0.55-1.02); Calcium 9.6 mg/dL (8.5-10.1); Calculated LDL 51 mg/dL (<100); Chloride 102 mmol/L (98-107); Cholesterol 138 mg/dL (<200); Glucose 138 mg/dL (74-106); HDL Cholesterol 53 mg/dL (>or=50); Potassium 4.8 mmol/L (3.5-5.1); Sodium 139 mmol/L (136-145); Total Protein 7.7 g/dL (6.4-8.2); Triglyceride 173 mg/dL (<150)
== END 2025-03-15 08:28 | disposition home or self-care (01) ==
LOC: NCHCN 08:27
PROVIDERS: PCP Nurse Practitioner Family; Visit Provider Nurse Practitioner Family
DX: Z00.00 Encounter for general adult medical examination without abnormal findings (principal); E78.5 Hyperlipidemia, unspecified
CPT/HCPCS: 80053; 80061; 85025

== ENCOUNTER 2025-05-12 00:17 | Outpatient (CLI) | payer BC, SELFPAY ==
--- NOTE | 2025-05-12 | DI.MAMMO_ITS ---
Exam(s) MAMMO SCREENING EXAM: MAMMO SCREENING CLINICAL HISTORY: SCREENING MAMMO Z12.31 TECHNIQUE: Mammograms were interpreted according to the usual protocol including computer analysis with CAD system, tomosynthesis and C-view imaging. COMPARISON: 2020 through 2023 FINDINGS: The breasts are composed of scattered fibroglandular densities, Breast Density category B. No suspicious masses or suspicious microcalcifications are seen. Stable 5 millimeter nodule anterior left breast, lateral to the nipple. No skin thickening or abnormal axillary lymph nodes are seen. There has been no significant change from prior exams. IMPRESSION: BI-RADS Category 2 - Benign Findings Yearly screening mammography is recommended. Breast Density - Category B - There are scattered areas of fibroglandular density. Breast density Category C or D implies that the patient has dense breast tissue. Dense breast tissue can make it harder to find cancer on a mammogram. Dense breast tissue is also associated with an increased risk of breast cancer. This information about the result of the mammogram report was provided to the patient to raise their awareness. Use this report when you speak with the patient about their risks for breast cancer, which includes their family history. At that time, you may recommend additional screening tests (Ultrasound or MRI) as these tests may add significant information. A negative radiographic report should not delay biopsy if a dominant or clinically suspicious mass is present. Up to ten percent of cancers are not identified on mammography. A negative report may reinforce clinical impression. Adenosis and dense breasts may obscure an underlying neoplasm. False positive reports average 6 to 10%. Patient will receive a letter notifying them of these results.
== END 2025-05-12 00:37 ==
LOC: DI 00:17
PROVIDERS: PCP Nurse Practitioner Family; Visit Provider Nurse Practitioner Family
DX: Z12.31 Encounter for screening mammogram for malignant neoplasm of breast (principal)
CPT/HCPCS: 77063; 77067

== ENCOUNTER 2025-08-16 10:40 | Outpatient (REF) | payer BC, SELFPAY | END 2025-08-16 10:41 | disposition home or self-care (01) | LOC: NCHCN 10:40 | PROVIDERS: PCP Nurse Practitioner Family; Visit Provider Family Medicine | DX: N39.0 Urinary tract infection, site not specified (principal) | CPT/HCPCS: 87077; 87086; 87186 ==

== ENCOUNTER 2025-09-14 11:12 | Outpatient (REF) | payer BC, SELFPAY ==
[2025-09-14 16:54] LABS: TSH (W/Ref FT4) 1.98 uIU/mL (0.55-4.78)
[2025-09-14 17:38] LABS: Microalb ug/mg Crea 33.7 ug/mg Cr
== END 2025-09-14 11:13 | disposition home or self-care (01) ==
LOC: NCHCN 11:12
PROVIDERS: PCP Nurse Practitioner Family; Visit Provider Nurse Practitioner Family
DX: I10 Essential (primary) hypertension (principal); E03.9 Hypothyroidism, unspecified
CPT/HCPCS: 82043; 82570; 84443